=== PATIENT | male | born 2000 | race American Indian/Alaskan Native ===

== ENCOUNTER 2020-01-20 19:02 | Emergency (ER) | payer SELFPAY ==
[2020-01-20 19:30] VITALS: BP 144/100
--- NOTE | 2020-01-20 19:56 | Emergency Department Report ---
Chief Complaint: Urogenital-Male Stated Complaint: CHECK UP Time Seen by Provider: 01/20/20 19:50 - HPI History of Present Illness: 19-year-old -[place] male patient presents with complaints of urinary frequency and penile discharge for the past 3 days. He denies any testicular pain or swelling, penile pain or swelling, hematuria, abdominal pain, fever/chills/sweats, joint pain/swelling/redness, or penile lesions. He reports he recently had unprotected sex with an individual. Has any previous history of STDs or other medical history. - Exam Vital Signs: Vital Signs 01/20/20 19:25 Temperature 99.1 F Pulse Rate 72 Respiratory 18 Rate Blood Pressure 144/100 O2 Sat by Pulse 100 Oximetry MSE screening note: Focused history and physical exam performed. Due to findings the following was ordered: ED Medical Decision Making - Medical Decision Making Patient here with complaints of urinary frequency and penile discharge. He denies any other symptoms. Recommend patient seek testing and treatment for STIs at the health department, in urgent care, or with Dr. Johnson - information was provided for all facilities. His vitals are normal he is well- appearing and stable for discharge home. Strict return precautions were discussed in detail with patient who verbalized understanding. ED Disposition for MSE Clinical Impression: Penile discharge Disposition: MED SCREENING EXAM-LEFT Is pt being admited?: No Condition: Stable Instructions: Sexually Transmitted Diseases (ED) Referrals: JULIANNE JOHNSON MD [Staff Physician] - 3-5 Days ED Review of Systems ROS: Stated complaint: CHECK UP Other details as noted in HPI Constitutional: denies: chills, fever, malaise, weakness Gastrointestinal: denies: abdominal pain Genitourinary: frequency, discharge. denies: urgency, dysuria, hematuria, testicular pain, testicular mass Neurological: denies: headache ED Physical Exam - General Limitations: No Limitations General appearance: alert, in no apparent distress - Head Head exam: Present: atraumatic, normocephalic - Eye Eye exam: Present: normal appearance. Absent: scleral icterus - Respiratory Respiratory exam: Absent: respiratory distress - Cardiovascular Cardiovascular Exam: Present: regular rate - GI/Abdominal GI/Abdominal exam: Present: soft. Absent: tenderness - Neurological Exam Neurological exam: Present: alert, oriented X3, normal gait - Psychiatric Psychiatric exam: Present: normal affect, normal mood - Skin Skin exam: Present: warm, dry, intact, normal color. Absent: rash
== END 2020-01-20 20:00 | disposition left against medical advice (07) ==
LOC: ED 19:02
DX: R36.9 Urethral discharge, unspecified (principal); Z53.21 Procedure and treatment not carried out due to patient leaving prior to being seen by health care provider